=== PATIENT | male | born 1995 | race Caucasian/White ===

== ENCOUNTER → 2022-03-08 | Outpatient (CLI) | payer OTHER, MEDICAID, SELFPAY ==
[2022-03-08 12:29] LABS: Absolute Lymphocyte Count 2.24 X10^3/uL (0.83-4.51); Basophil# 0.06 X10^3/uL; Basophil% 0.9 % (0-1); Eosinophil# 0.12 X10^3/uL; Eosinophils% 1.7 % (0-5); Hematocrit 45.9 % (40-54); Hemoglobin 15.6 g/dL (13.0-16.5); Lymphocyte # 2.24 X10^3/ul (0.83-4.51); Lymphocyte % 31.8 % (19-41); Mean Corpuscular Hgb 29.9 pg (27.0-32.0); Mean Corpuscular Volume 87.9 fL (80-94); Mean Platelet Vol. 10.7 fl (6.2-12.0); Monocyte# 0.59 X10^3/uL; Monocyte% 8.4 % (0-10); NRBC Flagged by Analyzer 0.3 % (0-5); Neutrophil # 3.97 X10^3/uL (2.7-7.7); Neutrophil % 56.3 % (47-70); Platelet Count 212 K/mm3 (150-450); RBC Distribution Width CV 12.7 % (11.6-14.6); RBC Distribution Width SD 40.6 fl (35.1-43.9); Red Blood Count 5.22 M/mm3 (4.6-6.2)
[2022-03-08 12:43] LABS: Vitamin B12 508 pg/mL (211-911)
[2022-03-08 13:09] LABS: ALB/GLOB Ratio 1.2 RATIO (0.9-2.4); AST(SGOT) 29 U/L (15-37); Alanine Aminotransfer ALT/SGPT 66 U/L (16-61); Albumin, Serum 4.1 g/dL (3.2-5.0); Alkaline Phosphatase 64 U/L (45-117); Anion Gap 8 (5-15); BUN 17 mg/dL (7-18); BUN/Creat Ratio 18.2 RATIO (10-20); Calcium,Total 9.3 mg/dL (8.5-10.1); Chloride 103 mmol/L (98-107); Cholesterol 214 mg/dL (200); Creatinine, Serum 0.94 mg/dL (0.70-1.30); EST Glomerular Filtration Rate 103 mL/min (>60); Est Glom Filt Rate - Afr Amer 125 mL/min (>60); Globulin 3.5 g/dL (2.2-4.2); Glucose 83 mg/dL (74-106); High Density Lipoprotein 41 mg/dL; Potassium 4.1 mmol/L (3.5-5.1); Protein, Total 7.6 g/dL (6.4-8.2); Sodium Level 138 mmol/L (136-145); Thyroid Stim Hormone (TSH) 0.34 uIU/mL (0.358-3.74); Triglycerides 273 mg/dL; Very Low Density Lipoprotein 55 mg/dL (5-40)
[2022-03-11 13:54] LABS: T4 Free Direct 1.04 ng/dL (0.76-1.46)
[2022-03-11 13:55] LABS: T3 Total - Triiodothyronine 1.15 ng/mL (0.6-1.81)
[2022-03-11 18:39] LABS: Vitamin D 1,25-Dihydroxy 33.2 pg/mL (24.8-81.5)
== END | disposition home or self-care (01) ==
PROVIDERS: PCP Internal Medicine; Referring Provider Internal Medicine; Visit Provider Internal Medicine
DX: Z13.1 Encounter for screening for diabetes mellitus (principal); Z13.6 Encounter for screening for cardiovascular disorders; E66.9 Obesity, unspecified; R79.89 Other specified abnormal findings of blood chemistry; R20.0 Anesthesia of skin; R20.2 Paresthesia of skin
CPT/HCPCS: 36415; 80053; 80061; 82607; 82652; 84439; 84443; 84480; 85025

== ENCOUNTER → 2023-06-12 | Outpatient (CLI) | payer OTHER, SELFPAY ==
[2023-06-12 12:41] LABS: Vitamin D,25 Hydroxy 25.8 ng/mL
[2023-06-12 13:17] LABS: ALB/GLOB Ratio 1.3 RATIO (0.9-2.4); AST(SGOT) 28 U/L (15-37); Alanine Aminotransfer ALT/SGPT 57 U/L (16-61); Albumin, Serum 4.4 g/dL (3.2-5.0); Alkaline Phosphatase 56 U/L (45-117); Anion Gap 6 (5-15); BUN 15 mg/dL (7-18); BUN/Creat Ratio 18.9 RATIO (10-20); Calcium,Total 9.2 mg/dL (8.5-10.1); Chloride 106 mmol/L (98-107); Cholesterol 244 mg/dL (200); Creatinine, Serum 0.79 mg/dL (0.70-1.30); EST Glomerular Filtration Rate 124 mL/min (>60); Est Glom Filt Rate - Afr Amer 150 mL/min (>60); Globulin 3.3 g/dL (2.2-4.2); Glucose 108 mg/dL (74-106); High Density Lipoprotein 53 mg/dL; Potassium 4.1 mmol/L (3.5-5.1); Protein, Total 7.7 g/dL (6.4-8.2); Sodium Level 138 mmol/L (136-145); Thyroid Stim Hormone (TSH) 0.46 uIU/mL (0.358-3.74); Triglycerides 84 mg/dL; Very Low Density Lipoprotein 17 mg/dL (5-40)
[2023-06-12 13:41] LABS: Absolute Lymphocyte Count 1.76 X10^3/uL (0.83-4.51); Absolute Neutrophil Count 3.1 X10^3/uL (2.0-7.7); Basophil# 0.05 X10^3/uL; Basophil% 0.9 % (0-1); Eosinophil# 0.09 X10^3/uL; Eosinophils% 1.6 % (0-5); Hematocrit 45.4 % (40-54); Hemoglobin 15.2 g/dL (13.0-16.5); Lymphocyte # 1.76 X10^3/ul (0.83-4.51); Lymphocyte % 31.3 % (19-41); Mean Corp Hgb Conc 33.5 g/dL (32-36); Mean Corpuscular Hgb 29.5 pg (27.0-32.0); Mean Corpuscular Volume 88.2 fL (80-94); Mean Platelet Vol. 10.9 fl (6.2-12.0); Monocyte# 0.58 X10^3/uL; Monocyte% 10.3 % (0-10); NRBC Flagged by Analyzer 0 % (0-5); Neutrophil # 3.11 X10^3/uL (2.7-7.7); Neutrophil % 55.2 % (47-70); Platelet Count 197 K/mm3 (150-450); RBC Distribution Width CV 12.8 % (11.6-14.6); RBC Distribution Width SD 41.2 fl (35.1-43.9); Red Blood Count 5.15 M/mm3 (4.6-6.2); White Blood Count 5.6 K/mm3 (4.4-11.0)
== END | disposition home or self-care (01) ==
LOC: BIMLAB 08:27
PROVIDERS: PCP Internal Medicine; Referring Provider Internal Medicine; Visit Provider Internal Medicine
DX: R53.83 Other fatigue (principal); R07.89 Other chest pain; E78.2 Mixed hyperlipidemia; R79.89 Other specified abnormal findings of blood chemistry
CPT/HCPCS: 36415; 80053; 80061; 82306; 84402; 84403; 84443; 85025

== ENCOUNTER 2023-10-21 23:52 | Emergency (ER) | payer OTHER, SELFPAY ==
[2023-10-21 23:53] VITALS: BP 167/109; PULSE 73; RESP 16; TEMP 36.8; O2SAT 100; BMI 31.3
[2023-10-22] MEDS: Lidocaine 2% Viscous15 ML UDC 15 ML PO (00:19)
[2023-10-22] MEDS: Ondansetron 4 MG/2 ML Vial IV (00:19)
[2023-10-22] MEDS: Mag /Aluminum/Simeth WCH UDC 30 ML ORAL.SUSP PO (00:19)
[2023-10-22 00:44] LABS: Absolute Lymphocyte Count 2.16 X10^3/uL (0.83-4.51); Absolute Neutrophil Count 7.4 X10^3/uL (2.0-7.7); Basophil# 0.06 X10^3/uL; Basophil% 0.5 % (0-1); Eosinophil# 0.16 X10^3/uL; Eosinophils% 1.5 % (0-5); Hematocrit 42.8 % (40-54); Hemoglobin 14.8 g/dL (13.0-16.5); Lymphocyte # 2.16 X10^3/ul (0.83-4.51); Lymphocyte % 19.8 % (19-41); Mean Corp Hgb Conc 34.6 g/dL (32-36); Mean Corpuscular Hgb 29.7 pg (27.0-32.0); Mean Corpuscular Volume 85.9 fL (80-94); Mean Platelet Vol. 10.7 fl (6.2-12.0); Monocyte% 10.1 % (0-10); NRBC Flagged by Analyzer 0 % (0-5); Neutrophil # 7.37 X10^3/uL (2.7-7.7); Neutrophil % 67.4 % (47-70); Platelet Count 212 K/mm3 (150-450); RBC Distribution Width CV 12.4 % (11.6-14.6); RBC Distribution Width SD 38.5 fl (35.1-43.9); Red Blood Count 4.98 M/mm3 (4.6-6.2); White Blood Count 10.9 K/mm3 (4.4-11.0)
[2023-10-22 01:06] LABS: AST(SGOT) 32 U/L (15-37); Alanine Aminotransfer ALT/SGPT 66 U/L (16-61); Albumin, Serum 4.3 g/dL (3.2-5.0); Alkaline Phosphatase 62 U/L (45-117); Bilirubin, Direct 0.13 mg/dL (0.00-0.30); Globulin 3.2 g/dL (2.2-4.2); Lipase 29 U/L (13-75); Protein, Total 7.5 g/dL (6.4-8.2)
[2023-10-22] MEDS: Dicyclomine 10 MG Capsule 20 MG PO (01:48)
[2023-10-22 01:52] VITALS: BP 159/82; PULSE 69; RESP 16; O2SAT 100
[2023-10-22 03:00] VITALS: BP 150/74; PULSE 71; RESP 16; O2SAT 99
--- NOTE | 2023-10-22 03:37 | EDS_ITS ---
HPI History of Present Illness Chief Complaint: Abd Pain Detail of Chief Complaint: Patient presents with right upper quadrant epigastric pain 1 to 2 hours aft Informant: patient Onset/Context/Timing Onset: Today and Hours Context: Sudden Onset Timing: Continuous Quality: Achy burning sharp pain Location: Right upper quadrant epigastric area Current Severity: Moderate Maximum Severity: Moderate Worsened by: Worse during examination with palpation Relieved by: Nothing Associated Symptoms Associated Symptoms: Nausea Narrative Narrative: Patient is a healthy 28-year-old male on no medication with no allergies who presents with right upper quadrant epigastric pain after eating [employer] pizza . Did not taste funny. An hour or so after he consumed the pizza that he began to feel ill and have abdominal pain. He has nausea without vomiting diarrhea. He denies respiratory or cardiac symptoms. He denies radiation of pain to his back. He is unaware of anything lithiasis. He has no urologic symptoms. He has no history of GERD. Prior similar symptoms: No Recent Illness/Hospitalization: No PFSH PFSH Medical History No pertinent past medical history Home Medications ?Medication ?Instructions ?Recorded ?Last Taken ?Type dicyclomine 10 mg capsule 20 mg (2 x 10 mg) PO TIDAC #20 10/22/23 Unknown Rx CAPSULES Allergy/AdvReac Type Severity Reaction Status Date / Time No Known Allergies Allergy Verified 10/21/23 23:56 Family History Grandfather Colon cancer Mother Thyroid disorder Surgical History Hx of tonsillectomy History of ankle surgery Social History household members: spouse current occupational status: employed current occupation: logistics project manager, was in [employer] pets and animals: Yes pets and animals: cat(s) and dog(s) sexually active: Yes Smoking Status: Current some day smoker tobacco type: e-cigarettes Tobacco: How many years used: 11 Electronic Cigarette Use: with nicotine how long ago did patient quit smoking: vaped for past two years quit status: has quit before alcohol intake: current alcohol intake frequency: holidays/special occasions only substance use type: does not use caffeine: Yes (3) Type: coffee frequency: daily seatbelt use: always do you feel safe at home: Yes ROS ROS ED Constitutional Constitutional ED: Denies chills, fever(s), subjective or sweats Eyes Eyes: Denies blurry vision or change in vision Cardiovascular Cardiovascular: Denies chest pain Respiratory/Chest Respiratory/Chest: Denies cough, dyspnea or dyspnea on exertion Gastrointestinal Gastrointestinal: Reports abdominal pain and nausea; Denies constipation, diarrhea, melena or vomiting Musculoskeletal Musculoskeletal: Denies back pain Integumentary Denies Abrasions Hematologic/Lymphatic Hematologic/Lymphatic: Reports systems reviewed and no addt'l complaints, except as documented EXAM Physical Exam Const Vital Signs: 10/21/23 23:53 10/22/23 01:52 10/22/23 03:00 Temperature 98.3 F Temperature Source Temporal Pulse Rate 73 69 71 Respiratory Rate 16 16 16 Blood Pressure 167/109 H 159/82 H 150/74 H Blood Pressure Mean 128 107 99 Pulse Ox 100 100 99 Oxygen Delivery Method Room Air Room Air Room Air Positive well nourished and well developed General Appearance ED: well developed and NAD; Negative for cyanotic, diaphoretic or pallor HEENT HEENT Narrative: Head is atraumatic normocephalic. Eyes PERRL and EOMs intact bilaterally General Eye ED: Negative for scleral icterus Resp normal respiratory effort Cardio regular rate and regular rhythm GI normal to inspection, nondistended, normoactive bowel sounds, non-distended and no masses; Negative for non-tender or hepatosplenomegaly Inspection: Negative for abdominal distention Auscultation: hypoactive bowel sounds Palpation: soft and tender epigastric, RUQ, periumbilical and Peter's sign; Negative for guarding, splenomegaly, mass or rebound tenderness present Back/Spine no CVA tenderness Extremity normal to inspection General Extremety ED: Negative for edema or tenderness General Extremity: Negative for edema Neuro oriented x3, CN's II-XII intact bilaterally and no sensory deficits noted Motor Exam: strength 5/5 throughout Psych mental status grossly normal Skin no rashes or lesions noted and no wounds Skin Narrative: And evidence of contusion. General Skin Exam: Negative for jaundice or pallor Trauma: abrasion MDM MDM MDM Narrative Medical decision making narrative: Differential diagnosis is abdominal pain unknown etiology, biliary colic, cholecystitis, gastritis, reflux. Doubt cardiac. History is not consistent. Lab Data Attestation: I reviewed the patient's lab results. Lab results narrative: White count is normal. Liver profile is normal. Lipase is normal. Labs: Laboratory Results - last 24 hr 10/22/23 00:18 WBC 10.9 RBC 4.98 Hgb 14.8 Hct 42.8 MCV 85.9 MCH 29.7 MCHC 34.6 RDW Std Deviation 38.5 RDW Coeff of Thomas 12.4 Plt Count 212 MPV 10.7 Immature Gran % (Auto) 0.700 Neut % (Auto) 67.4 Lymph % (Auto) 19.8 [place] % (Auto) 10.1 H Eos % (Auto) 1.5 Baso % (Auto) 0.5 Absolute Neuts (auto) 7.4 Absolute Lymphs (auto) 2.16 Nucleated RBC % 0 Total Bilirubin 0.50 Direct Bilirubin 0.13 AST 32 ALT 66 H Alkaline Phosphatase 62 Total Protein 7.5 Albumin 4.3 Globulin 3.2 Lipase 29 Treatment and Re-Evaluation :: Patient was initially treated with GI cocktail. He had no improvement. He then was given Bentyl states his pain diminished to a 1. It has increased. Patient was informed his laboratory tests are negative. His exam is not suggestive of biliary disease. Since his vitals are unremarkable other than elevated blood pressure and complaining of epigastric pain and tenderness in the epigastric area will treat with Bentyl at this time. In my opinion emergent ultrasound is not indicated at this time. Discharge Plan Triage Chief Complaint: Abd Pain ED Provider: Max Dimas Dx/Rx/DC Orders Clinical Impression: Acute upper abdominal pain, Nausea, Elevated blood-pressure reading, without diagnosis of hypertension Instructions: ED Hypertension, To Be Confirmed, ED Pain, Acute, Uncertain Cause Prescriptions: New dicyclomine 10 mg capsule 20 mg PO TIDAC Qty: 20 0RF Primary Care Provider: aSumya Candelaria Referrals: Saumya Candelaria MD [Primary Care Provider] - 1-2 Days if not improving Activity Restrictions/Additional Instructions: If your pain resolves you should have your blood pressure reassessed by your doctor in 1 to 2 weeks. Otherwise follow-up in the next 1 to 2 days. Print Language: Spanish Disposition Disposition: Home, Self Care
[2023-10-22 03:55] VITALS: BP 173/71; PULSE 77; RESP 16; TEMP 36.6; O2SAT 99
== END 2023-10-22 03:55 | disposition home or self-care (01) ==
PROVIDERS: Emergency Provider Emergency Medicine; PCP Internal Medicine; Visit Provider Emergency Medicine
DX: R10.10 Upper abdominal pain, unspecified (principal); R11.0 Nausea; F17.290 Nicotine dependence, other tobacco product, uncomplicated; R03.0 Elevated blood-pressure reading, without diagnosis of hypertension
CPT/HCPCS: 80076; 83690; 85025; 96374; 99284; A4216; J2405

== ENCOUNTER → 2023-12-31 | Outpatient (CLI) | payer OTHER, SELFPAY ==
--- NOTE | 2023-12-31 14:00 | RAD_ITS ---
STUDY: X-RAY - LEFT ANKLE REASON FOR EXAM: Male, 28 years old. LEFT ANKLE FRACTURE TECHNIQUE: 2 view(s) of the ankle. COMPARISON: None. FINDINGS: Healed fractures of the distal tibia with medial and posterior plates and screws. Healed fracture of the distal fibula with a lateral plate and screws. Normal medial and lateral malleoli. Normal tibiotalar articulation and ankle mortise. Normal visualized talus and calcaneus. The visualized subtalar, talonavicular, calcaneocuboid and tarsal articulations are normal. The soft tissue structures are unremarkable. RAD/Ankle 2 Views IMPRESSION: Healed trimalleolar fracture after open reduction internal fixation. Electronically Signed: Jameel Mcfadden MD at 11:01 EST ,
== END | disposition home or self-care (01) ==
LOC: RAD 13:58
PROVIDERS: PCP Internal Medicine; Referring Provider Chiropractor; Visit Provider Chiropractor
DX: S92.102A Unspecified fracture of left talus, initial encounter for closed fracture (principal)
CPT/HCPCS: 73600